=== PATIENT | female | born 1970 | race Caucasian/White ===

== ENCOUNTER 2017-11-07 09:16 | Emergency (ER) | payer SELFPAY ==
[~2017-11-07] VITALS: Ht 152.4 cm; Wt 64.0 kg
[2017-11-07 09:32] VITALS: BP 154/91
== END 2017-11-07 10:43 | disposition home or self-care (01) ==
LOC: ER 09:16
DX: S80.01XA Contusion of right knee, initial encounter (principal); F41.9 Anxiety disorder, unspecified; F17.200 Nicotine dependence, unspecified, uncomplicated; F12.10 Cannabis abuse, uncomplicated; F32.9 Major depressive disorder, single episode, unspecified; Z88.0 Allergy status to penicillin; Z98.51 Tubal ligation status; Z88.2 Allergy status to sulfonamides; V43.62XA Car passenger injured in collision with other type car in traffic accident, initial encounter; Y93.89 Activity, other specified; Y92.488 Other paved roadways as the place of occurrence of the external cause
CPT/HCPCS: 99282